=== PATIENT | male | born 1970 | race Caucasian/White ===

== ENCOUNTER 2019-07-22 11:12 | Outpatient (CLI) | payer OTHER ==
[2019-07-22] MEDS ORDERED: Gadobenate Dimeglumine 529 MG/1 ML (20ML VIAL) ONE (12:00)
--- NOTE | 2019-07-22 13:27 | MRI ---
MRI BRAIN WITH AND WITHOUT IV CONTRAST: HISTORY: Other specific intracranial injury without loss of consciousness, initial encounter. FINDINGS: No restricted diffusion is seen. No signal abnormalities are seen on the highly sensitive FLAIR image s. No blood products are noted on the gradient echo sequences. The ventricular size is normal and the basilar cisterns are patent. No evidence of infarct, hemorrhage, mass, midline shift or abnormal extraaxial fluid collections is s een. No abnormal post contrast enhancement is noted. There is mucosal disease in the paranasal sinuse s. IMPRESSION: Normal MRI of the brain. POS: [facility]
== END 2019-07-22 11:13 | disposition home or self-care (01) ==
LOC: MRI 11:12
PROVIDERS: ATTEND Psychiatry & Neurology Neurology
DX: S06.890A Other specified intracranial injury without loss of consciousness, initial encounter (principal)
CPT/HCPCS: 70553; A9577